=== PATIENT | male | born 1965 | race Caucasian/White ===

== ENCOUNTER 2018-01-22 09:00 | Emergency (ER) | payer SELFPAY ==
[2018-01-22 09:51] LABS: ADD MAN DIFF? NO
[2018-01-22 10:06] LABS: BASO # 0.1 x10^3/uL (0.0-0.2); BASO % 2 % (0-3); EOS # 0.2 x10^3/uL (0.0-0.7); EOS % 3 % (0-3); HEMOGLOBIN 15.6 g/dL (13.0-17.5); LYMPH # 1.4 x10^3/uL (1.0-4.8); LYMPH % 23 % (24-48); MEAN CORPUSCULAR HEMOGLOBIN 33 pg (25-35); MEAN CORPUSCULAR HGB CONC 34 g/dL (31-37); MEAN CORPUSCULAR VOLUME 97 fL (79-100); MONO # 0.4 x10^3/uL (0.0-1.1); MONO % 7 % (0-9); NEUT # 3.9 x10^3uL (1.8-7.7); NEUT % 65 % (31-73); PLATELET COUNT 272 x10^3/uL (140-400); RED BLOOD COUNT 4.73 x10^6/uL (4.30-5.70); WHITE BLOOD COUNT 5.9 x10^3/uL (4.0-11.0)
[2018-01-22 10:10] LABS: D-DIMER 0.27 ug/mlFEU (0.00-0.50)
[2018-01-22 10:37] LABS: ANION GAP 5 (6-14); BLOOD UREA NITROGEN 10 mg/dL (8-26); CALCIUM 8.8 mg/dL (8.5-10.1); CARBON DIOXIDE 30 mmol/L (21-32); CHLORIDE 105 mmol/L (98-107); CREATININE 0.9 mg/dL (0.7-1.3); GFR 87.9; GLUCOSE 101 mg/dL (70-99); POTASSIUM 3.3 mmol/L (3.5-5.1); SODIUM 140 mmol/L (136-145)
[2018-01-22 10:52] LABS: TROPONINI < 0.017 ng/mL (0.000-0.055)
[2018-01-22] MEDS: KETOROLAC 15 MG/ML VIAL. IV (11:01)
== END 2018-01-22 12:50 | disposition home or self-care (01) ==
LOC: ER 09:00
DX: R09.1 Pleurisy (principal); J41.0 Simple chronic bronchitis; F17.210 Nicotine dependence, cigarettes, uncomplicated
CPT/HCPCS: 36415; 71045; 80048; 84484; 85025; 85379; 93005; 96374; 99285-25; J1885

== ENCOUNTER 2019-12-04 16:51 | Emergency (ER) | payer OTHER ==
[~2019-12-04] VITALS: Ht 180.3 cm; Wt 77.2 kg
[~2019-12-04 16:51] MED LIST: AZIT250T PO; TRAM50TA PO
[2019-12-04] MEDS ORDERED: fentaNYL PF VIAL 100 MCG/2 ML VIAL IV ONE (17:15)
[2019-12-04] MEDS ORDERED: IV NORMAL SALINE 1000ML BAG 1,000 ML IV ONE (17:15)
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
[2019-12-04 17:36] LABS: BASO # 0.1 x10^3/uL (0.0-0.2); BASO % 1 % (0-3); EOS # 0.3 x10^3/uL (0.0-0.7); EOS % 4 % (0-3); HEMATOCRIT 47.5 % (39.0-53.0); HEMOGLOBIN 16.5 g/dL (13.0-17.5); LYMPH # 1.5 x10^3/uL (1.0-4.8); LYMPH % 22 % (24-48); MEAN CORPUSCULAR HEMOGLOBIN 33 pg (25-35); MEAN CORPUSCULAR HGB CONC 35 g/dL (31-37); MEAN CORPUSCULAR VOLUME 95 fL (79-100); MONO # 0.6 x10^3/uL (0.0-1.1); MONO % 9 % (0-9); NEUT # 4.5 x10^3/uL (1.8-7.7); NEUT % 64 % (31-73); PLATELET COUNT 253 x10^3/uL (140-400); RED BLOOD COUNT 4.98 x10^6/uL (4.30-5.70); RED CELL DISTRIBUTION WIDTH 13.3 % (11.5-14.5)
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
[2019-12-04 17:46] LABS: PROTHROMBIN TIME PATIENT 12.2 SEC (11.7-14.0)
[2019-12-04 18:09] LABS: ALBUMIN 3.5 g/dL (3.4-5.0); CREATININE 0.9 mg/dL (0.7-1.3); GFR 87.3; TOTAL BILIRUBIN 0.5 mg/dL (0.2-1.0); TOTAL PROTEIN 6.9 g/dL (6.4-8.2)
[2019-12-04 18:10] LABS: POTASSIUM 2.7 mmol/L (3.5-5.1)
[2019-12-04] MEDS ORDERED: POTASSIUM CHLORIDE 20 MEQ TABLET.ER. PO STA (18:42)
[2019-12-04] MEDS ORDERED: CONTRAST GIVEN. MC PRN (18:45)
[2019-12-04] MEDS ORDERED: IOHEXOL 300 MG/ML 100ML VIAL. IV ONE (18:45)
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
[2019-12-04] MEDS ORDERED: DIPHTH,PERTUSS(ACELL),TET TOX 0.5 ML DISP.SYRIN. VAX IM ONE (19:30)
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
[2019-12-04 20:09] VITALS: BP 155/96
[2019-12-04] MEDS ORDERED: IBUP-1027 PO (20:34)
[2019-12-04] MEDS ORDERED: ORPH100T PO (20:34)
--- NOTE | 2019-12-05 05:15 | EKG ---
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
== END 2019-12-04 20:38 | disposition home or self-care (01) ==
LOC: ER 16:51
DX: G89.11 Acute pain due to trauma (principal); R07.89 Other chest pain; M54.6 Pain in thoracic spine; M25.532 Pain in left wrist; E87.6 Hypokalemia; F17.200 Nicotine dependence, unspecified, uncomplicated; Z98.890 Other specified postprocedural states; V89.2XXA Person injured in unspecified motor-vehicle accident, traffic, initial encounter; Y93.89 Activity, other specified; Y92.413 State road as the place of occurrence of the external cause; Y99.8 Other external cause status
CPT/HCPCS: 36415; 70450; 71260; 72125; 73000; 73110; 80053; 84484; 85025; 85610; 85730; 90471; 90715; 93005; 96374; 99285; J3010; J7030; Q9967